=== PATIENT | male | born 1945 | race Caucasian/White ===

== ENCOUNTER 2021-07-13 07:20 | Day surgery (SDC) | payer MEDICARE, OTHER ==
[~2021-07-13] VITALS: Ht 185.4 cm; Wt 100.2 kg
[2021-07-13] MEDS ORDERED: ALPHA LIPOIC A600 MG (08:02)
[2021-07-13] MEDS ORDERED: ALOGLIPTIN25 M1 (08:03)
[2021-07-13] MEDS ORDERED: ATOR10 (08:03)
[2021-07-13] MEDS ORDERED: JARDIANCE25 MG (08:04)
[2021-07-13] MEDS ORDERED: LISI5 (08:04)
[2021-07-13] MEDS ORDERED: FERSU300 (08:04)
[2021-07-13] MEDS ORDERED: Aspir 8181 MG (08:05)
[2021-07-13] MEDS ORDERED: OZEMPIC0.25 MG/0. (08:06)
[2021-07-13] MEDS ORDERED: OMEP20ER (08:06)
[2021-07-13] MEDS ORDERED: METF500 PO (08:06)
[2021-07-13] MEDS ORDERED: PREG75 (08:07)
[2021-07-13] MEDS ORDERED: PIOG45 (08:08)
== END 2021-07-13 09:48 | disposition home or self-care (01) ==
LOC: ORSCSDS 07:20
PROVIDERS: Internal Medicine Gastroenterology
PROC: 0DB58ZX Excision of Esophagus, Via Natural or Artificial Opening Endoscopic, Diagnostic (ICD-10-PCS; principal; 2021-07-13 08:45)
PROC: 0DB68ZX Excision of Stomach, Via Natural or Artificial Opening Endoscopic, Diagnostic (ICD-10-PCS; principal; 2021-07-13 08:45)
DX: K22.70 Barrett's esophagus without dysplasia (principal); K31.7 Polyp of stomach and duodenum; K44.9 Diaphragmatic hernia without obstruction or gangrene; Z85.46 Personal history of malignant neoplasm of prostate; Z85.038 Personal history of other malignant neoplasm of large intestine; E11.42 Type 2 diabetes mellitus with diabetic polyneuropathy; Z79.82 Long term (current) use of aspirin; Z79.84 Long term (current) use of oral hypoglycemic drugs; Z79.899 Other long term (current) drug therapy
CPT/HCPCS: 82947; 88305; J2704; J7120

== ENCOUNTER 2023-03-29 06:36 | Day surgery (SDC) | payer MEDICARE, OTHER ==
[~2023-03-29] VITALS: Ht 185.4 cm; Wt 204.4 kg
[~2023-03-29 06:36] MED LIST: ALOGLIPTIN25 M1 PO; ALPHA LIPOIC A600 MG; ATOR40TA PO; Aspir 8181 MG PO; CENTRUM SILVER1 EAC2 PO; FEROSUL325 M1 PO; GABA300 PO; JARDIANCE25 MG PO; LISI5 PO; METF500 PO; Metronidazole T45 GM TOP; OMEP20ER PO; OZEMPIC0.25 MG/0.; OZEMPIC2 MG/0.75; PIOG45 PO; PREG75; VITAMIN D325 MC3 PO; Vitamin B-12100 MCG PO
[2023-03-29 09:19] VITALS: BP 124/71
== END 2023-03-29 09:05 | disposition home or self-care (01) ==
LOC: ORSCSDS 06:36
PROVIDERS: Internal Medicine Gastroenterology
PROC: 0DB68ZX Excision of Stomach, Via Natural or Artificial Opening Endoscopic, Diagnostic (ICD-10-PCS; principal; 2023-03-29 08:00)
PROC: 0DB58ZX Excision of Esophagus, Via Natural or Artificial Opening Endoscopic, Diagnostic (ICD-10-PCS; principal; 2023-03-29 08:00)
DX: C15.9 Malignant neoplasm of esophagus, unspecified (principal); Z85.46 Personal history of malignant neoplasm of prostate; E11.9 Type 2 diabetes mellitus without complications; K44.9 Diaphragmatic hernia without obstruction or gangrene; Z79.82 Long term (current) use of aspirin; Z79.899 Other long term (current) drug therapy
CPT/HCPCS: 82947; 88305; 88341; 88342; J2704; J7120